=== PATIENT | female | born 1995 | race Caucasian/White ===

== ENCOUNTER 2018-07-25 22:09 | Emergency (ER) | payer BC ==
[2018-07-25] MEDS ORDERED: NS 1,000 ML IV ONE (22:37)
[2018-07-25] MEDS ORDERED: KETOROLAC 30 MG/1 ML SDV IVP ONE (22:38)
[2018-07-25] MEDS ORDERED: DEXAMETHASONE 10 MG/ML VIAL IVP ONE (22:38)
[2018-07-25] MEDS ORDERED: METOCLOPRAMIDE 10 MG/2 ML VIAL IVP ONE (22:38)
--- NOTE | 2018-07-25 23:50 | EDPHY ---
H & P Stated Complaint: MIGRAINE HEADACHE 1 WEEK PHOTOPHOBIA, NAUSEA - Personal History LMP (Females 10-55): 1-7 Days Ago Current Tetanus/Diphtheria Vaccine: Yes Current Tetanus Diphtheria and Acellular Pertussis (TDAP): Yes - Medical/Surgical History Hx Asthma: No Hx Chronic Respiratory Disease: No Hx Diabetes: No Hx Cardiac Disease: No Hx Renal Disease: No Hx Cirrhosis: No Hx Alcoholism: No Hx HIV/AIDS: No Hx Splenectomy or Spleen Trauma: No Other PMH: MIGRAINES , ANXIETY - Social History Smoking Status: Never smoked Time Seen by Provider: 07/25/18 22:22 HPI/ROS: Chief complaint: Headache History of present illness: This is a 22-year-old female who presents to the emergency department for evaluation of a headache. She reports throbbing pain across her forehead wrapping around to the back of her head. Patient has a history of headaches. She gets them weekly. She has never been evaluated by a doctor for them. Her mom has migraine headaches and this is what she believes she has is well. She usually uses [id number] medications. She reports this headache has been persistent, lasting for 5 days. However in terms of the characteristics there is nothing new or different. It was not sudden in onset. It is not the worst headache of her life. She denies associated signs or symptoms including no fevers or cold symptoms, no trauma, no paresthesias, no weakness or paralysis. Review of systems: A 10 point review of systems was obtained and other than described above was negative (Richie Garvey) - Physical Exam Exam: General Appearance: Alert, nontoxic, converses with me easily. Eyes: Pupils equal and round no pallor or injection. ENT, Mouth: Mucous membranes moist. Respiratory: There are no retractions, lungs are clear to auscultation. Cardiovascular: Regular rate and rhythm. Gastrointestinal: Abdomen is soft and non tender, no masses, bowel sounds normal. Neurological: Alert and oriented x4. Cranial nerves 2-12 grossly intact. Strength and sensation intact and symmetrical. No pronator drift. No meningismus. She is ambulating without difficulty. Skin: Warm and dry, no rashes. Musculoskeletal: Neck is supple non tender. Extremities are symmetrical, full range of motion. Psychiatric: Patient is oriented X 3, there is no agitation. (Richie Garvey) Constitutional: Initial Vital Signs Temperature (C) 37.0 C 09/08/18 22:18 Heart Rate 79 07/25/18 22:18 Respiratory Rate 18 07/25/18 22:18 Blood Pressure 153/102 H 07/25/18 22:18 O2 Sat (%) 97 07/25/18 22:18 O2 Delivery Mode Room Air Allergies/Adverse Reactions: lamotrigine Allergy (Verified 07/25/18 22:21) Home Medications: Medication Instructions Recorded Multivitamins [Multivitamin (*)] 1 each PO DAILY 07/25/18 Medical Decision Making ED Course/Re-evaluation: Patient seen under the supervision of my secondary supervising physician Dr. Idalia Jones. Patient presents to the emergency department for a headache. She is nontoxic. She is afebrile and vital signs are stable. She has an unremarkable physical exam including a nonfocal neurologic exam. My suspicion for serious underlying pathology is low. I do not appreciate red flag risk factors. It was not thunderclap in nature. It is not the worst headache of her life. She has had similar headaches in the past. She is symptomatically treated with near resolution of symptoms. She is comfortable being discharged home. Home care is discussed. She has not seen a doctor, specifically a neurologist for her headaches before, therefore I recommended she follow up with one. Referral information was provided to her. Strict return precautions were given. The patient voiced understanding and agreement with plan. (Richie Garvey) PHYSICIAN DOCUMENTATION: The patient was evaluated and managed by the Physician Polygraph Operator. My co- signature indicates that I have reviewed this chart and I agree with the findings and plan of care as documented. I am the secondary supervising physician. (Idalia Jones) Differential Diagnosis: Included but not limited to migraine headache, tension headache, chronic daily headache, unlikely intracranial mass, bleed or meningitis (Richie Garvey) - Data Points Medications Given: Discontinued Medications Dexamethasone (Decadron Injection) 10 mg IVP EDNOW ONE Stop: 07/25/18 22:39 Last Admin: 07/25/18 23:19 Dose: 10 mg Diphenhydramine HCl (Benadryl Injection) 25 mg IVP EDNOW ONE Stop: 07/25/18 22:39 Last Admin: 07/25/18 23:16 Dose: 25 mg Sodium Chloride (Ns) 1,000 mls @ 0 mls/hr IV EDNOW ONE; Wide Open PRN Reason: Protocol Stop: 07/25/18 22:38 Last Admin: 07/25/18 23:00 Dose: 1,000 mls Ketorolac Tromethamine (Toradol) 30 mg IVP EDNOW ONE Stop: 07/25/18 22:39 Last Admin: 07/25/18 23:19 Dose: 30 mg Metoclopramide HCl (Reglan Injection) 10 mg IVP EDNOW ONE Stop: 07/25/18 22:39 Last Admin: 07/25/18 23:17 Dose: 10 mg Point of Care Test Results: Urine HCG Results Negative Departure - Departure Disposition: Home, Routine, Self-Care Clinical Impression: Headache Qualifiers: Headache type: unspecified Headache chronicity pattern: acute headache Intractability: not intractable Qualified Code(s): R51 - Headache Condition: Good Instructions: Acute Headache (ED) Additional Instructions: Follow-up with a primary care doctor and Neurology for continued evaluation and care If symptoms worsen or new symptoms develop return to the emergency room immediately for recheck Referrals: NONE *PRIMARY CARE P,. [Primary Care Provider] - As per Instructions Jonah Grijalva MD [Medical Doctor] - As per Instructions [facility],. [Clinic] - As per Instructions
[2018-07-26 00:14] VITALS: BP 126/82
== END 2018-07-26 00:14 | disposition home or self-care (01) ==
DX: G43.909 Migraine, unspecified, not intractable, without status migrainosus (principal); R11.0 Nausea; E86.9 Volume depletion, unspecified
CPT/HCPCS: 96374; J1100; J1200; J1885; J2765